=== PATIENT | female | born 1985 | race Two or more races ===

== ENCOUNTER 2023-10-17 00:40 | Emergency (ER) | payer SELFPAY ==
[2023-10-17 00:44] VITALS: PULSE 84; BMI 36.6
[2023-10-17] MEDS: MAG HYDROX/AL HYDROX/SIMETH 30 ML UNIT-DOSE CUP PO ONE (02:09)
[2023-10-17] MEDS: SODIUM CHLORIDE 1,000 ML IV STA (02:10)
[2023-10-17] MEDS: FAMOTIDINE 20 MG/50 ML IVPB 20 MG/50 ML MG IVPB ONE (02:10)
[2023-10-17] MEDS: ACETAMINOPHEN 1000 MG/100 ML BAG IVPB ONE (02:10)
[2023-10-17] MEDS ORDERED: ACETAMINOPHEN INJECTION 100 ML IVPB ONE (02:12)
[2023-10-17] MEDS ORDERED: FAMOTIDINE 20 MG/50 ML IVPB 20 MG/50 ML MG IVPB ONE (02:12)
[2023-10-17] MEDS ORDERED: MAG HYDROX/AL HYDROX/SIMETH 30 ML UNIT-DOSE CUP ONE (02:12)
[2023-10-17 02:58] LABS: BASO % 0.5 % (0-2.0); EOS % 0.7 % (0-4.5); HEMATOCRIT 31.7 % (32.4-45.2); HEMOGLOBIN 9.5 GM/dL (10.7-15.3); LYMPH % 44.4 % (8-40); MCHC 29.9 g/dl (32.0-36.0); MEAN CELL VOLUME 65.4 fl (80-96); MEAN PLT VOLUME 9.3 fl (7.5-11.1); MONO % 9.5 % (3.8-10.2); NEUT % 44.9 % (42.8-82.8); PLATELET COUNT 293 10^3/uL (134-434); RBC 4.84 M/mm3 (3.60-5.2); RDW 19.8 % (11.6-15.6); WHITE BLOOD COUNT 7.3 K/mm3 (4.0-10.0)
[2023-10-17 03:00] LABS: MCH 19.6 pg (25.7-33.7)
[2023-10-17 03:06] LABS: INR 1.21 (0.83-1.09); PROTHROMBIN TIME (PATIENT) 13.8 SEC (9.7-13.0)
[2023-10-17 03:09] LABS: ACTIVATED PTT 40.5 SECONDS (25.2-36.5)
[2023-10-17 03:28] LABS: POTASSIUM 3.4 mmol/L (3.5-5.1)
[2023-10-17 03:31] LABS: ALBUMIN 3.2 g/dl (3.4-5.0); CALCIUM 8.2 mg/dL (8.5-10.1)
[2023-10-17 03:33] LABS: CREATININE 0.5 mg/dL (0.55-1.3)
[2023-10-17 03:36] LABS: BILIRUBIN,TOTAL 0.3 mg/dL (0.2-1); TOT PROT 7.4 g/dl (6.4-8.2)
[2023-10-17 05:30] LABS: ANISOCYTOSIS 1+; MACROCYTOSIS 0
[2023-10-17 05:45] VITALS: BP 116/83; RESP 13
[2023-10-17 05:46] VITALS: TEMP 98.4
== END 2023-10-17 05:51 | disposition home or self-care (01) ==
LOC: JER 00:40
PROC: 3E033GC Introduction of Other Therapeutic Substance into Peripheral Vein, Percutaneous Approach (ICD-10-PCS; principal; 2023-10-17)
PROC: 3E033NZ Introduction of Analgesics, Hypnotics, Sedatives into Peripheral Vein, Percutaneous Approach (ICD-10-PCS; 2023-10-17)
DX: K76.0 Fatty (change of) liver, not elsewhere classified (principal); R10.13 Epigastric pain; R19.7 Diarrhea, unspecified; R11.10 Vomiting, unspecified; Z20.822 Contact with and (suspected) exposure to COVID-19
CPT/HCPCS: 0241U-QW; 36415; 76705-TC; 80053; 83690; 84703; 85025; 85610; 85730; 93005; 93010; 99285-25; J0131